=== PATIENT | male | born 1950 | race Caucasian/White ===

== ENCOUNTER 2021-01-23 12:52 | Day surgery (SDC) | payer MEDICARE, BC ==
[~2021-01-23] VITALS: Ht 175.3 cm; Wt 90.1 kg
[2021-01-23] VITALS (8 sets, daily range): BP systolic 102–157; BP diastolic 59–84; PULSE 50–76; TEMP 97.7–98.8
[~2021-01-23 12:52] MED LIST: ASPIRIN 81M81 MG/TA2 PO; FLONASEALLERGY NS; TENORMIN 2525 MG/TAB PO; UROXATRAL10 M1 PO; ZANTAC 150MG T150 MG PO
[2021-01-23] MEDS ORDERED: PRILOSEC 20MG20 MG PO (13:40)
--- NOTE | 2021-01-23 18:50 | NUR ---
Patient doing well post op, Post op VSS and post op fluids infusing per orders. Patient voiding clear pink urine without difficulties. Spouse at bedside. Patient and spouse educated on follow up appointment and when to call provider. Patient educated on increasing fluid intake. All questions answered. INT to right hand discontinued, catheter tip intact.
--- NOTE | 2021-01-23 19:20 | NUR ---
Patient out by wheelchair with surgical staff.
== END 2021-01-23 19:21 | disposition home or self-care (01) ==
LOC: SDCO 12:52 → SURG 16:11 → SDCO 19:21
DX: C67.1 Malignant neoplasm of dome of bladder (principal); K21.9 Gastro-esophageal reflux disease without esophagitis; G43.909 Migraine, unspecified, not intractable, without status migrainosus; E78.5 Hyperlipidemia, unspecified; I10 Essential (primary) hypertension; R31.0 Gross hematuria; Z90.89 Acquired absence of other organs; Z79.82 Long term (current) use of aspirin; Z79.899 Other long term (current) drug therapy; Z87.891 Personal history of nicotine dependence; Z80.3 Family history of malignant neoplasm of breast; Z80.42 Family history of malignant neoplasm of prostate; Z80.49 Family history of malignant neoplasm of other genital organs
CPT/HCPCS: OP; J0690; J1100; J2405; J2704; J3010; J7120

== ENCOUNTER 2023-09-28 10:40 | Day surgery (SDC) | payer MEDICARE, BC ==
[2023-09-28] VITALS (7 sets, daily range): BP systolic 115–129; BP diastolic 59–74; PULSE 55–74; TEMP 97.9–98.3
[~2023-09-28] VITALS: Ht 175.3 cm; Wt 87.0 kg
[~2023-09-28 10:40] MED LIST changes: +LR 1,000 ML IV SCH; +PRILOSEC 20MG20 MG PO
[2023-09-28] MEDS ORDERED: OMEGA-3 1000 MG1 CAP PO (12:14)
[2023-09-28] MEDS ORDERED: GLUCOSAMINE 1000 (12:15)
[2023-09-28] MEDS ORDERED: Glycopyrrolate 0.2 MG/ML 1 ML VIAL ONE (12:18)
[2023-09-28] MEDS ORDERED: NS 10 ML IV ONE (12:18)
[2023-09-28] MEDS ORDERED: fentaNYL 50 MCG/ML 2 ML VIAL ONE (12:18)
[2023-09-28] MEDS ORDERED: Ondansetron 4 MG/2 ML VIAL ONE (12:18)
[2023-09-28] MEDS ORDERED: dexAMETHasone 10 MG/ML VIAL ONE (12:18)
[2023-09-28] MEDS ORDERED: Lidocaine PF 2% (20 MG/ML) 5 ML VIAL ONE (12:18)
[2023-09-28] MEDS ORDERED: Meperidine 50 MG/ML 1 ML VIAL IV PRN (12:30)
[2023-09-28] MEDS ORDERED: Ondansetron 4 MG/2 ML VIAL IV PRN (12:30)
[2023-09-28] MEDS ORDERED: HYDROmorphone 2 MG/1 ML VIAL IV PRN (12:30)
[2023-09-28] MEDS ORDERED: Morphine 4 MG/ML VIAL IV PRN (12:30)
[2023-09-28] MEDS ORDERED: ROBITUSSIN100 MG/5 M PO (12:58)
[2023-09-28] MEDS ORDERED: TYLENOL 325MG325 MG PO (12:58)
[2023-09-28] MEDS ORDERED: ePHEDrine 50 MG/ML VIAL ONE (13:13)
[2023-09-28] MEDS ORDERED: Lidocaine 2% (20 MG/ML) 20 ML UROJET UR ONE (13:14)
[2023-09-28] MEDS ORDERED: oxyCODONE/Acetaminophen 5-325 MG TAB PO PRN (13:45)
[2023-09-28] MEDS ORDERED: Hyoscyamine 0.125 MG Sublingual TAB SL PRN (13:45)
--- NOTE | 2023-09-28 14:40 | NUR ---
1154 Pt ambulatory to bay 3 with a steady gait, breathing even and unlabored. Pt is alert and oriented, accompanied by his . Consents reviewed and signed by pt. IV estalished. LR infusing via gravity at KVO. Call light in reach. Warm blanket provided.
--- NOTE | 2023-09-28 20:02 | NUR ---
[id number]: PT TO RECOVERY BAY 3 FROM PACU S/P TURBT (H/O 4 PRIOR TURBT'S) A&O, PLACED ON MONITOR, VSS ON RA RECEIVED REPORT AND ASSUMED CARE OF PT FROM RN YULIA JUAREZ AT BEDSIDE PT TREATED FOR URGENCY AND URETHRAL/SUPRAPUBIC PAIN IN PACU, NOW REPORTING DISCOMFORT OF 4/10 (AND IMPROVING - FULLY RESOLVED BY END OF STAY). UNABLE TO URINATE IN PACU, WITH NOTED BLOOD PER URETHRA. BLADDER SCAN IN PACU SHOWED 300ML. PROVIDED FOOD/FLUIDS, TOLERATING WELL. AMBULATED WITH STANDBY ASSIST TO BR, SCANT (10 ML) OUTPUT - MOSTLY BLOODY. ENCOURAGED PO FLUIDS, AMBULATED WITH THIS RN THEN INDEPENDENLY MULTIPLE TIMES IN SDC WITH CONTINUED DIFFICULTY VOIDING/COMPLETELY EMPTYING BLADDER. SCANNED AGAIN ~1545, SHOWING 250ML AFTER TWO TRIPS TO BR. URGENCY/DISCOMFORT HAS RESOLVED COMPLETELY. 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 CONCERNS/RISKS OF OBSTRUCTION DUE TO CLOT AND POSSIBILITY OF DC HOME WITH DAILY VERSUS HAVING TO RTC/ED IF RETENTION BECOMES MORE SEVERE REVIEWED WITH PT/FAMILY MULTIPLE TIMES THRU OUT SDC STAY - ULTIMATELY PT WISHES TO DELAY DC HOME AND CONSIDERATION OF CATHETERIZING FOR 2 MORE HOURS OF SDC MONITORING, VERBALIZED UNDERSTANDING OF ABOVE. ULTIMATELY PT ABLE TO VOID A FEW MORE TIMES WITH IMPROVED OUTPUT AND LESS PERIURETHRAL BLOOD (NO CLOTS VISUALIZED THRU OUT SDC STAY). DENIES COMPLAINT. PT HAD 1 TRANSIENT EPISODE OF EMESIS AFTER ATTEMPTING TO HYDRATE WITH 2 CUPS (~24 OZ) OF FLUIDS TO FACILITATE BLADDER EMPTYING/DILUTION. IMMEDIATELY DENIES COMPLAINT AFTER, DENIED INTERVENTION, AND VERBALIZES UNDERSTANDING TO PROGRESS PO DIET MORE SLOWLY. PT A&O, NAD, VSS ON RA; OTHERWISE TOLERATING PO AND WITHOUT SIGNIFICANT COMPLAINT, WITH STEADY GAIT THRU OUT SDC STAY. WISHES TO GO HOME WITHOUT FURTHER INTERVENTION AND AGREES TO CALL DR MYERS (01/03) OR RTC/ED PRN COMPLICATIONS. ADDITIONALLY, PT NOTED TO HAVE FREQUENT PAC'S/ OCCASIONAL PVC'S ON 3-LEAD SINCE HIS ADMISSION THIS MORNING, DENIES SUBJECTIVE COMPLAINT, VSS ON RA AND DURING EXERTION. CLEARED FOR D/C FROM PACU AND TO HOME BY [facility] (PER PACU REPORT). PT AGREES TO NOTIFY PCP THIS WEEK TO HAVE THIS ASSESSED. IV D/C'D. D/C INSTRUCTIONS, FOLLOW UP REVIEWED AND HANDED TO PT. ALL QUESTIONS AND CONCERNS ADDRESSED TO PT SATISFACTION. TAKEN TO EXIT VIA W/C WITH ALL BELONGINGS AND PAPERWORK IN HAND, ASSISTED INTO PASSENGER SEAT OF POV. FAMILY TO DRIVE HOME.
== END 2023-09-28 17:40 | disposition home or self-care (01) ==
LOC: SDCO 10:40
DX: C67.9 Malignant neoplasm of bladder, unspecified (principal); K21.9 Gastro-esophageal reflux disease without esophagitis; Z79.899 Other long term (current) drug therapy
CPT/HCPCS: J0690; J1100; J1170; J2405; J2704; J3010; J7120